=== PATIENT | male | born 1935 | race Caucasian/White ===

== ENCOUNTER 2020-11-23 08:47 | Inpatient (IN) | payer MEDICARE, MEDICAID ==
[~2020-11-23] VITALS: Ht 167.6 cm; Wt 53.7 kg
[2020-11-23] MEDS ORDERED: DILTIAZEM HCL 5MG/ML 5ML VIAL IV ONE (09:15)
[2020-11-23 09:33] LABS: CHLORIDE 113 mEq/L (98-107)
[2020-11-23 09:34] LABS: BASOPHILS % 0.5 % (0.0-2.0); HEMATOCRIT. 45.9 % (42.0-52.0); HEMOGLOBIN. 15.4 g/dL (14.0-18.0); LYMPHOCYTES % 14.1 % (20.0-50.0); MEAN CORPUSCULAR VOLUME 89.2 fL (80.0-94.0); MEAN PLATELET VOLUME 8.9 fl (7.4-10.4); MONOCYTES % 6.7 % (2.0-8.0); NEUTROPHILS % 77.7 % (40.0-76.0); PLATELET 253 x1000/uL (130-400); RED BLOOD CELL COUNT 5.14 mill/uL (4.7-6.1); RED CELL DISTRIBUTION WIDTH 15.5 % (11.6-14.6)
[2020-11-23 09:36] LABS: INR 1.1; PROTHROMBIN TIME 12.1 sec (9.6-11.0)
[2020-11-23 09:37] LABS: ETHANOL BLOOD < 10 mg/dL
[2020-11-23 09:42] LABS: T4 FREE 1.56 ng/dL (0.76-1.46)
[2020-11-23] MEDS ORDERED: DILTIAZEM HCL 30MG TABLET PO ONE (10:00)
[2020-11-23] MEDS ORDERED: FUROSEMIDE 40MG/4ML VIAL IVP ONE (10:15)
[2020-11-23 10:56] LABS: CLARITY URINE CLEAR (CLEAR); COLOR URINE YELLOW (YELLOW); KETONES URINE TRACE (NEGATIVE); LEUKOCYTE ESTERASE URINE 2+ (NEGATIVE); NITRITE URINE NEGATIVE (NEGATIVE); OCCULT BLOOD URINE NEGATIVE (NEGATIVE); PROTEIN URINE 1+ (NEGATIVE); SPECIFIC GRAVITY URINE 1.014 (1.005-1.030)
[2020-11-23 11:11] LABS: *BARBITURATES SCREEN URINE NEGATIVE (NEGATIVE)
[2020-11-23 11:12] LABS: *AMPHETAMINES SCREEN URINE NEGATIVE (NEGATIVE); *BENZODIAZEPINES SCREEN URINE NEGATIVE (NEGATIVE); *COCAINE SCREEN URINE NEGATIVE (NEGATIVE); CANNABINOID URINE SCREEN NEGATIVE (NEGATIVE); METHADONE URINE SCREEN NEGATIVE (NEGATIVE); OPIATES URINE SCREEN NEGATIVE (NEGATIVE); PHENCYCLIDINE URINE SCREEN NEGATIVE (NEGATIVE)
[2020-11-23] MEDS ORDERED: CEFTRIAXONE 1 G PREMIX 50 ML IV ONE (12:00)
[2020-11-23] MEDS ORDERED: DILTIAZEM HCL 30MG TABLET PO PRN (13:45)
[2020-11-23] MEDS ORDERED: HYDROCODONE/ACETAMINOPHEN 5/325MG TABLET PO PRN (13:45)
[2020-11-23] MEDS ORDERED: IPRATROPIUM/ALBUTEROL 0.5-3(2.5)MG/3ML NEB HHN PRN (13:45)
[2020-11-23] MEDS ORDERED: ONDANSETRON HCL 4MG/2ML INJ IV PRN (13:45)
[2020-11-23] MEDS ORDERED: DOCUSATE SODIUM 100MG CAPSULE PO PRN (13:45)
[2020-11-23] MEDS ORDERED: ACETAMINOPHEN 325MG TABLET PO PRN (13:45)
[2020-11-23] MEDS ORDERED: MAGNESIUM/ALUMINUM HYDROXIDE/SIMETHICONE 30ML UDC PO PRN (13:45)
[2020-11-23] MEDS ORDERED: CLONIDINE 0.1MG TABLET PO PRN (13:45)
[2020-11-23] MEDS ORDERED: GUAIFENESIN 200MG/10ML SUGAR FREE UDC PO PRN (13:45)
[2020-11-23] MEDS: AMLODIPINE 10MG TABLET PO SCH (14:00)
[2020-11-23] MEDS ORDERED: APIXABAN 5 MG TABLET PO SCH (14:00)
[2020-11-23] MEDS ORDERED: AZITHROMYCIN 500MG/250ML 250 ML IV SCH (14:00)
[2020-11-23] MEDS: APIXABAN 2.5 MG TABLET PO SCH (17:06)
[2020-11-24] VITALS (8 sets, daily range): BP systolic 91–144; BP diastolic 52–95
[2020-11-24 05:17] LABS: LDL CHOLESTEROL 106 mg/dL (5-100)
[2020-11-24 05:18] LABS: HDL CHOLESTEROL 43 mg/dL (40-59)
[2020-11-24 05:54] LABS: BASOPHILS % 0.6 % (0.0-2.0); EOSINOPHILS % 3.1 % (0.0-5.0); HEMATOCRIT. 47.1 % (42.0-52.0); HEMOGLOBIN. 15.7 g/dL (14.0-18.0); LYMPHOCYTES % 17.8 % (20.0-50.0); MEAN CORPUSCULAR HEMOGLOBIN 30.1 pg (28.0-32.0); MEAN CORPUSCULAR VOLUME 90.3 fL (80.0-94.0); MEAN PLATELET VOLUME 9.4 fl (7.4-10.4); NEUTROPHILS % 68.5 % (40.0-76.0); PLATELET 221 x1000/uL (130-400); RED BLOOD CELL COUNT 5.22 mill/uL (4.7-6.1); RED CELL DISTRIBUTION WIDTH 15.4 % (11.6-14.6)
[2020-11-24 05:56] LABS: CHLORIDE 110 mEq/L (98-107)
[2020-11-24] MEDS: FUROSEMIDE 40MG/4ML VIAL IV SCH (08:40)
[2020-11-24] MEDS: APIXABAN 2.5 MG TABLET PO SCH ×2 (08:40→17:08)
[2020-11-24] MEDS: AMLODIPINE 10MG TABLET PO SCH (08:41)
[2020-11-24] MEDS: METOPROLOL TARTRATE 50MG TABLET PO SCH ×2 (08:46→20:53)
[2020-11-24] MEDS ORDERED: CEFTRIAXONE 1 G PREMIX 50 ML IV SCH (09:00)
[2020-11-24] MEDS ORDERED: NALOXONE HCL 0.4MG/ML VIAL IV PRN (10:45)
[2020-11-24] MEDS: CEFTRIAXONE 1,000 MG in DEXTROSE 5% WATER 50 ML IV SCH (12:16)
[2020-11-24] MEDS: AZITHROMYCIN 500MG in DEXTROSE 5% WATER 250ML IV SCH (12:17)
[2020-11-24] MEDS ORDERED: APIX2.5T PO (14:17)
[2020-11-24] MEDS ORDERED: METO-396 PO (14:17)
[2020-11-24] MEDS ORDERED: DIGOXIN 500MCG/2ML AMP IV NR (16:18)
[2020-11-24] MEDS ORDERED: METOPROLOL TARTRATE 5MG/5ML VIAL IV PRN (16:19)
[2020-11-24] MEDS: ATORVASTATIN CALCIUM 20MG TABLET PO SCH (20:53)
[2020-11-25] VITALS: BP 144/70
[2020-11-25 03:55] VITALS: BP 114/73
[2020-11-25 08:00] VITALS: BP 116/58
[2020-11-25] MEDS: METOPROLOL TARTRATE 50MG TABLET PO SCH ×2 (09:15→21:13)
[2020-11-25] MEDS: APIXABAN 2.5 MG TABLET PO SCH ×2 (09:15→18:01)
[2020-11-25] MEDS: FUROSEMIDE 40MG/4ML VIAL IV SCH (09:15)
[2020-11-25] MEDS: AMLODIPINE 10MG TABLET PO SCH (09:15)
[2020-11-25 12:00] VITALS: BP 104/67
[2020-11-25] MEDS: CEFTRIAXONE 1,000 MG in DEXTROSE 5% WATER 50 ML IV SCH (14:19)
[2020-11-25 16:00] VITALS: BP 110/60
[2020-11-25] MEDS: AZITHROMYCIN 500MG in DEXTROSE 5% WATER 250ML IV SCH (17:41)
[2020-11-25 20:33] VITALS: BP 96/74
[2020-11-25] MEDS: ATORVASTATIN CALCIUM 20MG TABLET PO SCH (21:12)
[2020-11-26] VITALS: BP 105/72
[2020-11-26 04:00] VITALS: BP 106/64
[2020-11-26 08:00] VITALS: BP 111/64
[2020-11-26] MEDS: APIXABAN 2.5 MG TABLET PO SCH ×2 (08:54→17:25)
[2020-11-26] MEDS: METOPROLOL TARTRATE 50MG TABLET PO SCH (08:54)
[2020-11-26] MEDS: FUROSEMIDE 40MG/4ML VIAL IV SCH (08:55)
[2020-11-26] MEDS: AMLODIPINE 10MG TABLET PO SCH (08:55)
[2020-11-26] MEDS ORDERED: AZITHROMYCIN 500 MG TABLET PO SCH (11:00)
[2020-11-26 12:00] VITALS: BP 99/70
[2020-11-26] MEDS ORDERED: NITROFURANTOIN 100MG M/M CAPSULE PO SCH (12:00)
[2020-11-26 13:02] VITALS: BP 108/59
[2020-11-26 16:00] VITALS: BP 114/61
[2020-11-27] MEDS ORDERED: FUROSEMIDE 40MG TABLET PO SCH (09:00)
== END 2020-11-26 17:57 | disposition home health service (06) | DRG 871 ==
LOC: ER 08:47 → 5EST 11:04 → 6WST 11-25 04:20
PROVIDERS: ADMIT Hospitalist; ATTEND Hospitalist
DX: A41.9 Sepsis, unspecified organism (principal); J96.01 Acute respiratory failure with hypoxia; I50.23 Acute on chronic systolic (congestive) heart failure; I48.11 Longstanding persistent atrial fibrillation; D68.59 Other primary thrombophilia; E44.1 Mild protein-calorie malnutrition; N39.0 Urinary tract infection, site not specified; N17.9 Acute kidney failure, unspecified; Z68.1 Body mass index [BMI] 19.9 or less, adult; I11.0 Hypertensive heart disease with heart failure; I16.0 Hypertensive urgency; Z20.822 Contact with and (suspected) exposure to COVID-19; Z60.2 Problems related to living alone; I25.10 Atherosclerotic heart disease of native coronary artery without angina pectoris; T37.8X5A Adverse effect of other specified systemic anti-infectives and antiparasitics, initial encounter; B95.2 Enterococcus as the cause of diseases classified elsewhere; Z79.01 Long term (current) use of anticoagulants; Z59.0 Homelessness; Y92.89 Other specified places as the place of occurrence of the external cause
CPT/HCPCS: 36415; 71045; 80053; 80061; 80305; 80320; 81003; 83735; 83880; 84439; 84443; 84484; 85025; 87077; 87186; 87426; 93005; 93306; 93970; 97161; 99291; J0456; J0696; J1160; J1940; J3490; J7060; G0480

== ENCOUNTER 2020-11-30 17:58 | Inpatient (IN) | payer MEDICARE, MEDICAID ==
[~2020-11-30] VITALS: Ht 172.7 cm; Wt 60.3 kg
[~2020-11-30 17:58] MED LIST: APIX2.5T PO; METO-396 PO
[2020-11-30] MEDS ORDERED: SODIUM CHLORIDE 0.9% 1,000 ML IV ONE (18:45)
[2020-11-30 19:43] LABS: BASOPHILS % 0.9 % (0.0-2.0); EOSINOPHILS % 3.4 % (0.0-5.0); HEMATOCRIT. 41.9 % (42.0-52.0); HEMOGLOBIN. 14.2 g/dL (14.0-18.0); LYMPHOCYTES % 15.4 % (20.0-50.0); MEAN CORPUSCULAR HEMOGLOBIN 30.5 pg (28.0-32.0); MEAN CORPUSCULAR VOLUME 90.1 fL (80.0-94.0); MEAN PLATELET VOLUME 7.9 fl (7.4-10.4); MONOCYTES % 8.1 % (2.0-8.0); NEUTROPHILS % 72.2 % (40.0-76.0); PLATELET 248 x1000/uL (130-400); RED BLOOD CELL COUNT 4.65 mill/uL (4.7-6.1)
[2020-11-30 19:50] LABS: CHLORIDE 106 mEq/L (98-107)
[2020-11-30] MEDS ORDERED: DILTIAZEM HCL 5MG/ML 5ML VIAL IV ONE (20:45)
[2020-11-30 21:02] LABS: CLARITY URINE CLEAR (CLEAR); COLOR URINE YELLOW (YELLOW); KETONES URINE NEGATIVE (NEGATIVE); LEUKOCYTE ESTERASE URINE NEGATIVE (NEGATIVE); NITRITE URINE NEGATIVE (NEGATIVE); OCCULT BLOOD URINE NEGATIVE (NEGATIVE); PROTEIN URINE NEGATIVE (NEGATIVE); SPECIFIC GRAVITY URINE 1.006 (1.005-1.030); UROBILINOGEN URINE 0.2 E.U./dL (0.2-1.0)
[2020-11-30] MEDS ORDERED: KETOROLAC 15MG/ML VIAL IV ONE (22:00)
[2020-11-30] MEDS ORDERED: ZOLPIDEM TARTRATE 5MG TABLET PO PRN (22:45)
[2020-11-30] MEDS ORDERED: KETOROLAC 15MG/ML VIAL IV PRN (22:45)
[2020-11-30] MEDS ORDERED: DOCUSATE SODIUM 100MG CAPSULE PO PRN (22:45)
[2020-11-30] MEDS ORDERED: ACETAMINOPHEN 325MG TABLET PO PRN ×2 (22:45)
[2020-11-30] MEDS ORDERED: IPRATROPIUM/ALBUTEROL 0.5-3(2.5)MG/3ML NEB NEB PRN (22:45)
[2020-11-30] MEDS ORDERED: MAGNESIUM/ALUMINUM HYDROXIDE/SIMETHICONE 30ML UDC PO PRN (22:45)
[2020-11-30] MEDS ORDERED: ONDANSETRON HCL 4MG/2ML INJ IV PRN (22:45)
[2020-11-30] MEDS ORDERED: TRAMADOL 50MG TABLET PO PRN (22:45)
[2020-11-30] MEDS ORDERED: GUAIFENESIN 200MG/10ML SUGAR FREE UDC PO PRN (22:45)
[2020-11-30] MEDS ORDERED: CLONIDINE 0.1MG TABLET PO PRN (22:45)
[2020-11-30] MEDS ORDERED: ENOXAPARIN 80MG/0.8ML SYR SUBCUT SCH (23:00)
[2020-11-30] MEDS: DEXT 5%/LACTATED RINGERS 1,000 ML IV SCH (23:26)
[2020-12-01 06:05] LABS: CREATINE KINASE 57 IU/L (39-308)
[2020-12-01 06:06] LABS: CREATINE KINASE MB FRACTION < 1.0 ng/mL (0.5-3.6)
[2020-12-01 09:00] VITALS: BP 90/64
[2020-12-01 09:58] VITALS: BP 90/64
[2020-12-01 12:00] VITALS: BP 110/87
[2020-12-01] MEDS ORDERED: INFLUENZA VACCINE 05/PF 0.5 ML SYRINGE IM ONE (12:00)
[2020-12-01] MEDS: PANTOPRAZOLE SODIUM 40 MG/VIAL IV SCH (12:06)
[2020-12-01] MEDS: ENOXAPARIN 80MG/0.8ML SYR SUBCUT SCH ×3 (12:07→22:05)
[2020-12-01] MEDS: DEXT 5%/LACTATED RINGERS 1,000 ML IV SCH (13:54)
[2020-12-01] MEDS ORDERED: PNEUMOCOCCAL 23-VAL P-SAC VAC 0.5 ML IM ONE (15:00)
[2020-12-01 16:00] VITALS: BP 98/82
[2020-12-01 16:25] LABS: CREATINE KINASE MB FRACTION 1.7 ng/mL (0.5-3.6)
[2020-12-01 16:28] LABS: CREATINE KINASE 85 IU/L (39-308)
[2020-12-01 20:00] VITALS: BP 95/65
[2020-12-01] MEDS ORDERED: METO25TA6 MT (22:48)
[2020-12-01] MEDS ORDERED: FURO-151 PO (22:48)
[2020-12-01] MEDS ORDERED: NITR100C PO (22:48)
[2020-12-01] MEDS ORDERED: ATOR20TA MT (22:48)
[2020-12-02] VITALS: BP 108/80
[2020-12-02] MEDS: DEXT 5%/LACTATED RINGERS 1,000 ML IV SCH (01:25)
[2020-12-02 03:40] LABS: *AMPHETAMINES SCREEN URINE NEGATIVE (NEGATIVE)
[2020-12-02 03:42] LABS: *BARBITURATES SCREEN URINE NEGATIVE (NEGATIVE); *BENZODIAZEPINES SCREEN URINE NEGATIVE (NEGATIVE); *COCAINE SCREEN URINE NEGATIVE (NEGATIVE); CANNABINOID URINE SCREEN NEGATIVE (NEGATIVE); METHADONE URINE SCREEN NEGATIVE (NEGATIVE); OPIATES URINE SCREEN NEGATIVE (NEGATIVE); PHENCYCLIDINE URINE SCREEN NEGATIVE (NEGATIVE)
[2020-12-02 04:00] VITALS: BP 104/69
[2020-12-02 07:38] LABS: BASOPHILS % 0.7 % (0.0-2.0); EOSINOPHILS % 2.8 % (0.0-5.0); HEMATOCRIT. 42.6 % (42.0-52.0); HEMOGLOBIN. 14.4 g/dL (14.0-18.0); LYMPHOCYTES % 10.3 % (20.0-50.0); MEAN CORPUSCULAR VOLUME 88.9 fL (80.0-94.0); MEAN PLATELET VOLUME 8.3 fl (7.4-10.4); MONOCYTES % 6.6 % (2.0-8.0); NEUTROPHILS % 79.6 % (40.0-76.0); PLATELET 244 x1000/uL (130-400)
[2020-12-02 07:44] LABS: INR 1.1; PROTHROMBIN TIME 11.4 sec (9.6-11.0)
[2020-12-02 08:00] VITALS: BP 128/67
[2020-12-02] MEDS: PANTOPRAZOLE SODIUM 40 MG/VIAL IV SCH (09:00)
[2020-12-02] MEDS: ENOXAPARIN 80MG/0.8ML SYR SUBCUT SCH ×2 (09:00→20:20)
[2020-12-02 10:09] LABS: INR 1.1; PROTHROMBIN TIME 11.9 sec (9.6-11.0)
[2020-12-02] MEDS ORDERED: FENTANYL CITRATE/PF 50MCG/ML 2ML VIAL ONE (10:46)
[2020-12-02] MEDS ORDERED: PROPOFOL 200MG/20ML VIAL IV ONE (10:47)
[2020-12-02] MEDS ORDERED: MIDAZOLAM HCL 2 MG/2 ML VIAL ONE (10:47)
[2020-12-02] MEDS ORDERED: DEXAMETHASONE 4MG/ML 1ML VIAL ONE (11:28)
[2020-12-02] MEDS ORDERED: ONDANSETRON HCL 4MG/2ML INJ ONE (11:28)
[2020-12-02] MEDS ORDERED: PHENYLEPHRINE HCL 10 MG/ML 1ML (IV VIAL) IV ONE (11:46)
[2020-12-02] MEDS ORDERED: ONDANSETRON HCL 4MG/2ML INJ IV PRN (12:30)
[2020-12-02] MEDS ORDERED: HYDROMORPHONE HCL/PF 2MG/ML CPJ IV PRN (12:30)
[2020-12-02] MEDS ORDERED: LABETALOL 5MG/ML SYR 20 MG/4 ML SYRINGE IV PRN (12:30)
[2020-12-02] MEDS ORDERED: MEPERIDINE HCL/PF 25MG/ML CPJ IV PRN (12:30)
[2020-12-02 16:00] VITALS: BP 101/73
[2020-12-02] MEDS: DEXT 5%/0.9% NACL 1,000 ML IV SCH ×2 (17:57→20:51)
[2020-12-02 20:00] VITALS: BP 98/59
[2020-12-02 20:10] VITALS: BP 112/65
[2020-12-02] MEDS: DILTIAZEM HCL 30MG TABLET PO SCH (20:20)
[2020-12-03] VITALS (8 sets, daily range): BP systolic 91–104; BP diastolic 49–78
[2020-12-03] MEDS: DILTIAZEM HCL 30MG TABLET PO SCH ×5 (06:00→23:57)
[2020-12-03] MEDS: PANTOPRAZOLE SODIUM 40 MG/VIAL IV SCH (09:06)
[2020-12-03] MEDS: ENOXAPARIN 80MG/0.8ML SYR SUBCUT SCH (09:07)
[2020-12-03] MEDS: DEXT 5%/0.9% NACL 1,000 ML IV SCH ×2 (11:55→18:38)
[2020-12-03] MEDS ORDERED: ENOXAPARIN 60MG/0.6ML SYR SUBCUT SCH (21:00)
[2020-12-04] MEDS: DEXT 5%/0.9% NACL 1,000 ML IV SCH (00:56)
[2020-12-04 04:00] VITALS: BP 110/79
[2020-12-04] MEDS: DILTIAZEM HCL 30MG TABLET PO SCH ×2 (06:05→13:42)
[2020-12-04 08:00] VITALS: BP 119/79
[2020-12-04] MEDS ORDERED: FAMOTIDINE 20MG/2ML VIAL IV SCH (09:00)
[2020-12-04] MEDS ORDERED: APIXABAN 2.5 MG TABLET PO SCH (10:30)
[2020-12-04 12:00] VITALS: BP 119/68
[2020-12-04 15:04] VITALS: BP 119/68
== END 2020-12-04 18:05 | DRG 694 ==
LOC: ER 17:58 → MICUSO 22:21 → SUPCPDRO 22:34 → 6WST 12-01 07:57
PROVIDERS: ADMIT Internal Medicine; ATTEND Internal Medicine
PROC: 0TF6XZZ Fragmentation in Right Ureter, External Approach (ICD-10-PCS; principal; 2020-12-02)
DX: N13.2 Hydronephrosis with renal and ureteral calculous obstruction (principal); E44.1 Mild protein-calorie malnutrition; I50.40 Unspecified combined systolic (congestive) and diastolic (congestive) heart failure; Z20.822 Contact with and (suspected) exposure to COVID-19; I11.0 Hypertensive heart disease with heart failure; I48.91 Unspecified atrial fibrillation; Z79.2 Long term (current) use of antibiotics; Z79.899 Other long term (current) drug therapy; Z68.20 Body mass index [BMI] 20.0-20.9, adult; Z59.00 Homelessness unspecified
CPT/HCPCS: 36415; 71045; 74176; 76770; 80048; 80053; 80305; 81003; 82360; 82550; 82553; 84484; 85025; 87426; 90686; 90732; 93005; 93970; 97161; 97166; 99285; C9113; J1100; J1650; J2250; J2370; J2405; J2704; J3010; J3490; J7030; J7042

== ENCOUNTER 2021-02-23 03:32 | Inpatient (IN) | payer MEDICARE, MEDICAID ==
[~2021-02-23] VITALS: Ht 177.8 cm; Wt 64.9 kg
[~2021-02-23 03:32] MED LIST changes: +ATOR20TA MT; +FURO-151 PO; +METO25TA6 MT; +NITR100C PO
[2021-02-23] MEDS ORDERED: PIPERACILLIN/TAZ 3.375G PREMIX 50 ML IV ONE (03:45)
[2021-02-23] MEDS ORDERED: DILTIAZEM HCL 5MG/ML 5ML VIAL IV ONE (03:45)
[2021-02-23] MEDS ORDERED: VANCOMYCIN 1 G PREMIX 200 ML IV ONE (03:45)
[2021-02-23 04:03] LABS: HEMATOCRIT. 51.8 % (42.0-52.0); HEMOGLOBIN. 15.6 g/dL (14.0-18.0); MEAN CORPUSCULAR HEMOGLOBIN 29.1 pg (28.0-32.0); MEAN CORPUSCULAR VOLUME 96.6 fL (80.0-94.0); MEAN PLATELET VOLUME 11.2 fl (7.4-10.4); PLATELET 57 x1000/uL (130-400); RED BLOOD CELL COUNT 5.37 mill/uL (4.7-6.1)
[2021-02-23 04:10] LABS: CHLORIDE 144 mEq/L (98-107)
[2021-02-23 04:29] LABS: BG CARBOXYHEMOGLOBIN 0.3 % (0.5-1.5); BG DEOXYHEMOGLOBIN 0.5 % (0.0-5.0); BG FRACTION INSPIRED OXYGEN 100; BG HCO3 ACT 8.7 mmol/L (22.0-26.0); BG METHEMOGLOBIN 0.3 % (0.0-1.5); BG OXYGEN SATURATION 99.5 % (92.0-98.5); BG OXYHEMOGLOBIN 98.9 % (94.0-97.0); BG PH 7.256 (7.350-7.450); BG PO2 554.9 mmHg (75.0-100.0); BG SAMPLE SITE RIGHT RADIAL; BG TOTAL HEMOGLOBIN 15.5 g/dL (12.0-18.0); BG VENT MODE MASK - BIPAP
[2021-02-23] MEDS ORDERED: INSULIN REGULAR (DRIP) 100 UNITS in SODIUM CHLORIDE 0.9% 99 ML IV NR (04:45)
[2021-02-23] MEDS ORDERED: DEXTROSE 5% WATER 1,000 ML IV ONE ×2 (04:45→07:00)
[2021-02-23] MEDS ORDERED: DILTIAZEM HCL 125 MG in DEXT 5% WATER 100 ML IV ONE (05:15)
[2021-02-23 06:52] LABS: NUCLEATED RED BLOOD CELLS 1 /100 WBC; PLATELET ESTIMATE DECREASED
[2021-02-23] MEDS ORDERED: ACETAMINOPHEN 325MG TABLET PO PRN ×2 (07:00)
[2021-02-23] MEDS ORDERED: MAGNESIUM/ALUMINUM HYDROXIDE/SIMETHICONE 30ML UDC PO PRN (07:00)
[2021-02-23] MEDS ORDERED: TRAMADOL 50MG TABLET PO PRN (07:00)
[2021-02-23] MEDS ORDERED: PIPERACILLIN/TAZ 3.375G PREMIX 50 ML IV NR (07:00)
[2021-02-23] MEDS ORDERED: GUAIFENESIN 200MG/10ML SUGAR FREE UDC PO PRN (07:00)
[2021-02-23] MEDS ORDERED: DOCUSATE SODIUM 100MG CAPSULE PO PRN (07:00)
[2021-02-23] MEDS ORDERED: CLONIDINE 0.1MG TABLET PO PRN (07:00)
[2021-02-23] MEDS ORDERED: IPRATROPIUM/ALBUTEROL 0.5-3(2.5)MG/3ML NEB NEB PRN (07:00)
[2021-02-23] MEDS ORDERED: NITROGLYCERIN 0.4MG TABLET SL SL PRN (07:00)
[2021-02-23] MEDS ORDERED: SODIUM CHLORIDE 0.45% 1,000 ML IV NR (07:00)
[2021-02-23] MEDS ORDERED: NALOXONE HCL 0.4MG/ML VIAL IV PRN (07:30)
[2021-02-23 07:40] LABS: VITAMIN B12 SERUM >2000 pg/mL pg/mL (211-911)
[2021-02-23] MEDS: ASPIRIN 81MG EC TABLET PO SCH (09:00)
[2021-02-23] MEDS: FAMOTIDINE 20MG TABLET PO SCH (09:00)
[2021-02-23] MEDS: ASCORBIC ACID 500 MG TABLET PO SCH ×2 (09:00→21:00)
[2021-02-23] MEDS: CHOLECALCIFEROL (D3) 1000 UNIT TABLET PO SCH (09:00)
[2021-02-23] MEDS: ZINC SULFATE 220 MG ( 50 ) CAPSULE PO SCH (09:00)
[2021-02-23 09:15] LABS: CLARITY URINE CLOUDY (CLEAR); COLOR URINE DARK YELLOW (YELLOW); KETONES URINE TRACE (NEGATIVE); LEUKOCYTE ESTERASE URINE 1+ (NEGATIVE); NITRITE URINE NEGATIVE (NEGATIVE); OCCULT BLOOD URINE 2+ (NEGATIVE); PROTEIN URINE 1+ (NEGATIVE); SPECIFIC GRAVITY URINE 1.021 (1.005-1.030)
[2021-02-23] MEDS: DILTIAZEM HCL 60MG TABLET PO SCH ×3 (12:00→23:40)
[2021-02-23] MEDS ORDERED: IPRATROPIUM BROMIDE (0.02%) 0.5MG/2.5ML NEB HHN PRN (12:45)
[2021-02-23 13:06] LABS: BG BASE EXCESS -9.4 mmol/L (-2.0-2.0); BG CARBOXYHEMOGLOBIN 0.3 % (0.5-1.5); BG DEOXYHEMOGLOBIN 1.1 % (0.0-5.0); BG HCO3 ACT 12.5 mmol/L (22.0-26.0); BG METHEMOGLOBIN 0.3 % (0.0-1.5); BG OXYGEN SATURATION 98.9 % (92.0-98.5); BG OXYHEMOGLOBIN 98.3 % (94.0-97.0); BG PCO2 19.5 mmHg (35.0-45.0); BG PH 7.424 (7.350-7.450); BG PO2 152.2 mmHg (75.0-100.0); BG SAMPLE SITE RIGHT BRACHIAL; BG VENT MODE NASAL CANNULA
[2021-02-23 14:00] VITALS: BP 130/64
[2021-02-23 14:35] LABS: CREATINE KINASE MB FRACTION 8.6 ng/mL (0.5-3.6)
[2021-02-23 15:07] LABS: BG CARBOXYHEMOGLOBIN 0.1 % (0.5-1.5); BG DEOXYHEMOGLOBIN 1.3 % (0.0-5.0); BG HCO3 ACT 12.7 mmol/L (22.0-26.0); BG METHEMOGLOBIN 0.4 % (0.0-1.5); BG OXYGEN SATURATION 98.7 % (92.0-98.5); BG OXYHEMOGLOBIN 98.2 % (94.0-97.0); BG PCO2 17.5 mmHg (35.0-45.0); BG PH 7.477 (7.350-7.450); BG PO2 146.2 mmHg (75.0-100.0); BG SAMPLE SITE RIGHT BRACHIAL; BG TOTAL HEMOGLOBIN 14.4 g/dL (12.0-18.0); BG VENT MODE NASAL CANNULA
[2021-02-23] MEDS: DEXT 5%/0.2% NACL 1,000 ML IV SCH ×2 (15:52→23:39)
[2021-02-23 15:59] VITALS: BP 130/64
[2021-02-23 16:00] VITALS: BP 124/73
[2021-02-23] MEDS: IPRATROPIUM BROMIDE (0.02%) 0.5MG/2.5ML NEB HHN SCH ×2 (16:20→20:24)
[2021-02-23 18:00] VITALS: BP 98/72
[2021-02-23] MEDS ORDERED: APIXABAN 2.5 MG TABLET PO SCH (18:00)
[2021-02-23] MEDS ORDERED: HALOPERIDOL LACTATE 5MG/ML VIAL IM NR (19:15)
[2021-02-23 20:00] VITALS: BP 121/70
[2021-02-23] MEDS ORDERED: PIPERACILLIN/TAZOBACTAM 3.375 G in DEXTROSE 5% WATER 50 ML IV SCH (21:00)
[2021-02-23] MEDS ORDERED: ZOLPIDEM TARTRATE 5MG TABLET PO PRN (21:00)
[2021-02-23 21:31] LABS: PHOSPHORUS 3.6 mg/dL (2.5-4.9)
[2021-02-23 21:56] LABS: HEPATITIS B SURFACE ANTIGEN NEGATIVE
[2021-02-23 22:00] VITALS: BP 121/55
[2021-02-23] MEDS: PIPERACILLIN/TAZOBACTAM 3.375 G in DEXTROSE 5% WATER 50 ML IV SCH (23:37)
[2021-02-24] VITALS (17 sets, daily range): BP systolic 95–133; BP diastolic 46–81
[2021-02-24 00:10] LABS: CREATINE KINASE MB FRACTION 9.7 ng/mL (0.5-3.6)
[2021-02-24] MEDS ORDERED: DILTIAZEM HCL 125 MG in DEXT 5% WATER 100 ML IV NR (00:15)
[2021-02-24] MEDS: IPRATROPIUM BROMIDE (0.02%) 0.5MG/2.5ML NEB HHN SCH ×4 (01:03→21:22)
[2021-02-24] MEDS: DILTIAZEM HCL 60MG TABLET PO SCH ×4 (06:00→23:50)
[2021-02-24 06:20] LABS: HEMATOCRIT. 48.6 % (42.0-52.0); MEAN CORPUSCULAR HEMOGLOBIN 29.8 pg (28.0-32.0); MEAN PLATELET VOLUME 10.9 fl (7.4-10.4); RED BLOOD CELL COUNT 4.71 mill/uL (4.7-6.1); RED CELL DISTRIBUTION WIDTH 18.6 % (11.6-14.6)
[2021-02-24 06:25] LABS: CHLORIDE 138 mEq/L (98-107)
[2021-02-24 06:32] LABS: PHOSPHORUS 3.1 mg/dL (2.5-4.9)
[2021-02-24 06:51] LABS: PLATELET 35 x1000/uL (130-400)
[2021-02-24] MEDS: PIPERACILLIN/TAZOBACTAM 3.375 G in DEXTROSE 5% WATER 50 ML IV SCH (08:39)
[2021-02-24] MEDS ORDERED: ENOXAPARIN 30MG/0.3ML SYR SUBCUT SCH (09:00)
[2021-02-24 10:27] LABS: NUCLEATED RED BLOOD CELLS 2 /100 WBC
[2021-02-24 10:28] LABS: PLATELET ESTIMATE MARKEDLY DECREASED
[2021-02-24] MEDS ORDERED: CEFAZOLIN SODIUM 1000MG/VIAL IV ONE (10:45)
[2021-02-24] MEDS: ZINC SULFATE 220 MG ( 50 ) CAPSULE PO SCH (10:57)
[2021-02-24] MEDS: ASPIRIN 81MG EC TABLET PO SCH (10:57)
[2021-02-24] MEDS: FAMOTIDINE 20MG TABLET PO SCH (10:57)
[2021-02-24] MEDS: ASCORBIC ACID 500 MG TABLET PO SCH ×2 (10:57→21:59)
[2021-02-24] MEDS ORDERED: CEFAZOLIN 1000MG PREMIX 50 ML IV SCH (11:00)
[2021-02-24] MEDS: CHOLECALCIFEROL (D3) 1000 UNIT TABLET PO SCH (11:02)
[2021-02-24 11:32] LABS: PROTHROMBIN TIME 20.4 sec (9.6-11.0)
[2021-02-24] MEDS ORDERED: VANCOMYCIN 1 G PREMIX 200 ML IV NR (12:00)
[2021-02-24] MEDS: PHYTONADIONE 10MG/ML AMP SUBCUT SCH (13:36)
[2021-02-24] MEDS: DEXT 5%/0.2% NACL 1,000 ML IV SCH ×2 (15:51→23:49)
[2021-02-24 20:44] LABS: INR 1.9; PROTHROMBIN TIME 19.4 sec (9.6-11.0)
[2021-02-24] MEDS: CEFEPIME 1,000 MG in DEXTROSE 5% WATER 50 ML IV SCH (21:59)
[2021-02-25] VITALS (13 sets, daily range): BP systolic 112–130; BP diastolic 54–79
[2021-02-25] MEDS: IPRATROPIUM BROMIDE (0.02%) 0.5MG/2.5ML NEB HHN SCH ×4 (02:41→20:18)
[2021-02-25] MEDS: DILTIAZEM HCL 60MG TABLET PO SCH ×2 (05:53→12:00)
[2021-02-25 06:11] LABS: *CREATININE RANDOM URINE 77.2 mg/dL (Not Estab.); MICROALBUMIN RANDOM URINE 79.8 ug/mL (Not Estab.)
[2021-02-25 06:38] LABS: MEAN CORPUSCULAR HEMOGLOBIN 30.1 pg (28.0-32.0); MEAN CORPUSCULAR VOLUME 92.4 fL (80.0-94.0); MEAN PLATELET VOLUME 11.4 fl (7.4-10.4); RED BLOOD CELL COUNT 4.33 mill/uL (4.7-6.1); RED CELL DISTRIBUTION WIDTH 17.2 % (11.6-14.6)
[2021-02-25] MEDS: DEXT 5%/0.2% NACL 1,000 ML IV SCH ×4 (06:45→20:26)
[2021-02-25 07:01] LABS: CHLORIDE 130 mEq/L (98-107)
[2021-02-25 07:20] LABS: PHOSPHORUS 2.6 mg/dL (2.5-4.9)
[2021-02-25] MEDS: PHYTONADIONE 10MG/ML AMP SUBCUT SCH (08:35)
[2021-02-25] MEDS: ZINC SULFATE 220 MG ( 50 ) CAPSULE PO SCH (09:00)
[2021-02-25] MEDS: ASCORBIC ACID 500 MG TABLET PO SCH ×2 (09:00→20:26)
[2021-02-25] MEDS: FAMOTIDINE 20MG TABLET PO SCH (09:00)
[2021-02-25] MEDS: CHOLECALCIFEROL (D3) 1000 UNIT TABLET PO SCH (09:00)
[2021-02-25] MEDS: ASPIRIN 81MG EC TABLET PO SCH (09:00)
[2021-02-25 09:07] LABS: A/G RATIO 0.9 (0.7-1.7); ALBUMIN 2.5 g/dL (2.9-4.4); ALPHA-1-GLOBULIN 0.2 g/dL (0.0-0.4); ALPHA-2-GLOBULIN 0.4 g/dL (0.4-1.0); GAMMA GLOBULINS 1.3 g/dL (0.4-1.8); GLOBULIN TOTAL 2.9 g/dL (2.2-3.9); M-SPIKE Not Observed g/dL (Not Observed); TOTAL PROTEIN SERUM 5.4 g/dL (6.0-8.5)
[2021-02-25] MEDS ORDERED: VANCOMYCIN 1 G PREMIX 200 ML IV SCH (14:00)
[2021-02-25] MEDS ORDERED: DILTIAZEM HCL 5MG/ML 5ML VIAL IV NR (14:15)
[2021-02-25 18:33] LABS: PLATELET ESTIMATE MARKEDLY DECREASED
[2021-02-25 18:34] LABS: PLATELET 28 x1000/uL (130-400)
[2021-02-25] MEDS ORDERED: DILTIAZEM HCL 125 MG in DEXT 5% WATER 100 ML IV SCH (19:30)
[2021-02-25] MEDS: ONDANSETRON HCL 4MG/2ML INJ IV PRN (20:06)
[2021-02-25] MEDS: CEFEPIME 1,000 MG in DEXTROSE 5% WATER 50 ML IV SCH (20:26)
[2021-02-26] VITALS (17 sets, daily range): BP systolic 83–154; BP diastolic 45–96
[2021-02-26] MEDS: ONDANSETRON HCL 4MG/2ML INJ IV PRN ×2 (01:26→06:36)
[2021-02-26] MEDS: IPRATROPIUM BROMIDE (0.02%) 0.5MG/2.5ML NEB HHN SCH ×4 (02:01→20:36)
[2021-02-26] MEDS: DEXT 5%/0.2% NACL 1,000 ML IV SCH ×3 (04:55→22:34)
[2021-02-26 05:54] LABS: CHLORIDE 124 mEq/L (98-107)
[2021-02-26 06:02] LABS: PHOSPHORUS 2.7 mg/dL (2.5-4.9)
[2021-02-26 06:17] LABS: INR 1.3; PROTHROMBIN TIME 14.1 sec (9.6-11.0)
[2021-02-26 06:57] LABS: HEMATOCRIT. 42.1 % (42.0-52.0); HEMOGLOBIN. 13.4 g/dL (14.0-18.0); MEAN CORPUSCULAR HEMOGLOBIN 29.1 pg (28.0-32.0); MEAN CORPUSCULAR VOLUME 91.3 fL (80.0-94.0); RED BLOOD CELL COUNT 4.61 mill/uL (4.7-6.1); RED CELL DISTRIBUTION WIDTH 17.1 % (11.6-14.6)
[2021-02-26 07:19] LABS: MEAN PLATELET VOLUME 11.5 fl (7.4-10.4); PLATELET 29 x1000/uL (130-400)
[2021-02-26] MEDS: ZINC SULFATE 220 MG ( 50 ) CAPSULE PO SCH (08:33)
[2021-02-26] MEDS: FAMOTIDINE 20MG TABLET PO SCH (08:34)
[2021-02-26] MEDS: ASCORBIC ACID 500 MG TABLET PO SCH ×2 (08:34→22:35)
[2021-02-26] MEDS: ASPIRIN 81MG EC TABLET PO SCH (08:34)
[2021-02-26] MEDS: CHOLECALCIFEROL (D3) 1000 UNIT TABLET PO SCH (08:34)
[2021-02-26] MEDS: PHYTONADIONE 10MG/ML AMP SUBCUT SCH (09:29)
[2021-02-26] MEDS ORDERED: DILTIAZEM HCL 5MG/ML 5ML VIAL IV PRN (10:45)
[2021-02-26] MEDS: VANCOMYCIN 1 G PREMIX 200 ML IV SCH (11:00)
[2021-02-26 14:02] LABS: PLATELET ESTIMATE MARKEDLY DECREASED
[2021-02-26] MEDS: CEFEPIME 1,000 MG in DEXTROSE 5% WATER 50 ML IV SCH (22:39)
[2021-02-27] VITALS (18 sets, daily range): BP systolic 95–189; BP diastolic 49–140
[2021-02-27] MEDS: IPRATROPIUM BROMIDE (0.02%) 0.5MG/2.5ML NEB HHN SCH ×3 (01:59→14:00)
[2021-02-27] MEDS: VANCOMYCIN 1 G PREMIX 200 ML IV SCH (08:49)
[2021-02-27] MEDS: ASPIRIN 81MG EC TABLET PO SCH ×2 (08:49→09:00)
[2021-02-27] MEDS: ZINC SULFATE 220 MG ( 50 ) CAPSULE PO SCH ×2 (08:49→09:00)
[2021-02-27] MEDS: ASCORBIC ACID 500 MG TABLET PO SCH ×2 (08:49→09:00)
[2021-02-27] MEDS: DEXT 5%/0.2% NACL 1,000 ML IV SCH ×2 (08:49→22:10)
[2021-02-27] MEDS: FAMOTIDINE 20MG TABLET PO SCH ×2 (08:49→09:00)
[2021-02-27] MEDS: CHOLECALCIFEROL (D3) 1000 UNIT TABLET PO SCH ×2 (08:49→09:00)
[2021-02-27] MEDS ORDERED: NITROGLYCERIN 0.4MG/HR PATCH TOP SCH (10:00)
[2021-02-27 10:03] LABS: HEMATOCRIT. 40.9 % (42.0-52.0); HEMOGLOBIN. 13.2 g/dL (14.0-18.0); MEAN CORPUSCULAR HEMOGLOBIN 29.5 pg (28.0-32.0); MEAN CORPUSCULAR VOLUME 91.7 fL (80.0-94.0); MEAN PLATELET VOLUME 10.2 fl (7.4-10.4); PLATELET 59 x1000/uL (130-400); RED BLOOD CELL COUNT 4.46 mill/uL (4.7-6.1); RED CELL DISTRIBUTION WIDTH 16.4 % (11.6-14.6)
[2021-02-27 10:25] LABS: INR 1.4; PROTHROMBIN TIME 14.2 sec (9.6-11.0)
[2021-02-27] MEDS: NITROGLYCERIN OINT 1GM/INCH UDPKT TD SCH ×3 (10:28→21:58)
[2021-02-27] MEDS ORDERED: LIDOCAINE HCL 1% 20ML VIAL (Pyxis) INJ ONE (11:18)
[2021-02-27] MEDS: CEFEPIME 1,000 MG in DEXTROSE 5% WATER 50 ML IV SCH (21:58)
[2021-02-28] VITALS (12 sets, daily range): BP systolic 112–160; BP diastolic 50–104
[2021-02-28] MEDS: NITROGLYCERIN OINT 1GM/INCH UDPKT TD SCH ×3 (05:52→21:03)
[2021-02-28] MEDS: IPRATROPIUM BROMIDE (0.02%) 0.5MG/2.5ML NEB HHN SCH ×3 (07:32→21:10)
[2021-02-28 07:43] LABS: PLATELET ESTIMATE DECREASED
[2021-02-28 08:47] LABS: BG BASE EXCESS -10.3 mmol/L (-2.0-2.0); BG CARBOXYHEMOGLOBIN 0.2 % (0.5-1.5); BG DEOXYHEMOGLOBIN 0.7 % (0.0-5.0); BG HCO3 ACT 13.9 mmol/L (22.0-26.0); BG METHEMOGLOBIN 0.3 % (0.0-1.5); BG OXYGEN SATURATION 99.3 % (92.0-98.5); BG OXYHEMOGLOBIN 98.8 % (94.0-97.0); BG PCO2 26.7 mmHg (35.0-45.0); BG PH 7.333 (7.350-7.450); BG PO2 203.3 mmHg (75.0-100.0); BG SAMPLE SITE LEFT BRACHIAL; BG TOTAL HEMOGLOBIN 14.3 g/dL (12.0-18.0); BG VENT MODE MASK - SIMPLE
[2021-02-28] MEDS: FAMOTIDINE 20MG TABLET PO SCH ×2 (09:00→09:31)
[2021-02-28] MEDS: SODIUM BICARBONATE 50 MEQ in DEXTROSE 5% WATER 1,000 ML IV SCH (12:52)
[2021-02-28] MEDS: CLONIDINE HCL 0.1MG/24HR PATCH TD SCH (18:55)
[2021-02-28] MEDS: CEFEPIME 1,000 MG in DEXTROSE 5% WATER 50 ML IV SCH (20:08)
[2021-03-01] VITALS (14 sets, daily range): BP systolic 120–136; BP diastolic 58–85
[2021-03-01] MEDS: SODIUM BICARBONATE 50 MEQ in DEXTROSE 5% WATER 1,000 ML IV SCH ×2 (00:12→13:49)
[2021-03-01] MEDS: IPRATROPIUM BROMIDE (0.02%) 0.5MG/2.5ML NEB HHN SCH ×4 (02:39→20:51)
[2021-03-01] MEDS: NITROGLYCERIN OINT 1GM/INCH UDPKT TD SCH ×3 (05:13→22:07)
[2021-03-01 06:07] LABS: INR 1.4; PARTIAL THROMBOPLASTIN TIME 42.6 sec (23.4-31.0); PROTHROMBIN TIME 14.3 sec (9.6-11.0)
[2021-03-01 07:54] LABS: HEMATOCRIT. 38.3 % (42.0-52.0); HEMOGLOBIN. 12.9 g/dL (14.0-18.0); MEAN CORPUSCULAR HEMOGLOBIN 30.1 pg (28.0-32.0); MEAN CORPUSCULAR VOLUME 89.4 fL (80.0-94.0); MEAN PLATELET VOLUME 11.2 fl (7.4-10.4); RED BLOOD CELL COUNT 4.29 mill/uL (4.7-6.1); RED CELL DISTRIBUTION WIDTH 16.3 % (11.6-14.6)
[2021-03-01] MEDS ORDERED: CEFAZOLIN 1000MG PREMIX 50 ML IV NR (08:00)
[2021-03-01 08:11] LABS: PLATELET 49 x1000/uL (130-400)
[2021-03-01] MEDS: FAMOTIDINE 20MG TABLET PO SCH (09:40)
[2021-03-01] MEDS: METOPROLOL TARTRATE 5MG/5ML VIAL IV PRN ×2 (12:10→20:27)
[2021-03-01 13:05] LABS: PLATELET ESTIMATE MARKEDLY DECREASED
[2021-03-01] MEDS: CITRIC ACID/SODIUM CITRATE SOLN 30ML UDC PO SCH (17:15)
[2021-03-01] MEDS: DEXT 5% WATER + KCL 20MEQ/L 1,000 ML IV SCH (20:24)
[2021-03-01] MEDS: METOPROLOL TARTRATE 50MG TABLET PO SCH (20:24)
[2021-03-01] MEDS: CEFEPIME 1,000 MG in DEXTROSE 5% WATER 50 ML IV SCH (20:24)
[2021-03-02] VITALS (21 sets, daily range): BP systolic 103–145; BP diastolic 49–85
[2021-03-02] MEDS: IPRATROPIUM BROMIDE (0.02%) 0.5MG/2.5ML NEB HHN SCH ×4 (00:46→20:37)
[2021-03-02] MEDS: METOPROLOL TARTRATE 5MG/5ML VIAL IV PRN ×2 (05:09→21:41)
[2021-03-02] MEDS: NITROGLYCERIN OINT 1GM/INCH UDPKT TD SCH ×3 (05:10→21:41)
[2021-03-02 06:57] LABS: BG BASE EXCESS -6.1 mmol/L (-2.0-2.0); BG CARBOXYHEMOGLOBIN 0.3 % (0.5-1.5); BG DEOXYHEMOGLOBIN 2.8 % (0.0-5.0); BG HCO3 ACT 15.5 mmol/L (22.0-26.0); BG METHEMOGLOBIN 0.3 % (0.0-1.5); BG OXYGEN SATURATION 97.2 % (92.0-98.5); BG OXYHEMOGLOBIN 96.6 % (94.0-97.0); BG PH 7.466 (7.350-7.450); BG PO2 95.5 mmHg (75.0-100.0); BG SAMPLE SITE RIGHT RADIAL; BG TOTAL HEMOGLOBIN 13.5 g/dL (12.0-18.0); BG VENT MODE NASAL CANNULA
[2021-03-02 08:26] LABS: BASOPHILS % 0.3 % (0.0-2.0); HEMATOCRIT. 37.3 % (42.0-52.0); HEMOGLOBIN. 12.4 g/dL (14.0-18.0); LYMPHOCYTES % 8.3 % (20.0-50.0); MEAN CORPUSCULAR HEMOGLOBIN 29.4 pg (28.0-32.0); MEAN CORPUSCULAR VOLUME 88.7 fL (80.0-94.0); MEAN PLATELET VOLUME 9.9 fl (7.4-10.4); MONOCYTES % 5.8 % (2.0-8.0); NEUTROPHILS % 84.6 % (40.0-76.0); PLATELET 66 x1000/uL (130-400); RED BLOOD CELL COUNT 4.21 mill/uL (4.7-6.1); RED CELL DISTRIBUTION WIDTH 16.6 % (11.6-14.6)
[2021-03-02 08:44] LABS: PHOSPHORUS 2.6 mg/dL (2.5-4.9)
[2021-03-02] MEDS: CITRIC ACID/SODIUM CITRATE SOLN 30ML UDC PO SCH ×3 (09:00→16:49)
[2021-03-02] MEDS: METOPROLOL TARTRATE 50MG TABLET PO SCH ×2 (09:00→21:00)
[2021-03-02] MEDS: FAMOTIDINE 20MG TABLET PO SCH (09:00)
[2021-03-02 10:33] LABS: INR 1.4; PROTHROMBIN TIME 14.6 sec (9.6-11.0)
[2021-03-02] MEDS ORDERED: SODIUM CHLORIDE 0.9% 250 ML IV NR (11:30)
[2021-03-02] MEDS ORDERED: FUROSEMIDE 40MG/4ML VIAL IVP NR ×2 (13:45→14:30)
[2021-03-02] MEDS: FUROSEMIDE 100MG/10ML VIAL IVP SCH (14:55)
[2021-03-02] MEDS: DEXT 5% WATER + KCL 20MEQ/L 1,000 ML IV SCH (14:57)
[2021-03-03] VITALS (13 sets, daily range): BP systolic 120–144; BP diastolic 52–93
[2021-03-03] MEDS: IPRATROPIUM BROMIDE (0.02%) 0.5MG/2.5ML NEB HHN SCH ×4 (00:30→20:40)
[2021-03-03] MEDS: NITROGLYCERIN OINT 1GM/INCH UDPKT TD SCH ×3 (05:18→21:57)
[2021-03-03 06:04] LABS: BASOPHILS % 0.1 % (0.0-2.0); EOSINOPHILS % 0.4 % (0.0-5.0); HEMATOCRIT. 38.9 % (42.0-52.0); HEMOGLOBIN. 12.9 g/dL (14.0-18.0); LYMPHOCYTES % 7.9 % (20.0-50.0); MEAN CORPUSCULAR VOLUME 90.6 fL (80.0-94.0); MEAN PLATELET VOLUME 11.2 fl (7.4-10.4); MONOCYTES % 7.2 % (2.0-8.0); NEUTROPHILS % 84.4 % (40.0-76.0); PLATELET 62 x1000/uL (130-400); RED BLOOD CELL COUNT 4.29 mill/uL (4.7-6.1)
[2021-03-03] MEDS ORDERED: SODIUM CHLORIDE 0.9% 1000ML BAG (SEPSIS BOLUS) IV ONE (08:00)
[2021-03-03] MEDS: FUROSEMIDE 100MG/10ML VIAL IVP SCH (08:40)
[2021-03-03] MEDS: FAMOTIDINE 20MG TABLET PO SCH (09:00)
[2021-03-03] MEDS: METOPROLOL TARTRATE 50MG TABLET PO SCH ×2 (09:00→21:00)
[2021-03-03] MEDS: METOPROLOL TARTRATE 5MG/5ML VIAL IV PRN ×2 (15:56→23:43)
[2021-03-03] MEDS: DEXT 5% WATER + KCL 20MEQ/L 1,000 ML IV SCH (16:00)
[2021-03-03] MEDS: ENOXAPARIN 30MG/0.3ML SYR SUBCUT SCH (16:00)
[2021-03-03] MEDS: CITRIC ACID/SODIUM CITRATE SOLN 30ML UDC PO SCH (17:00)
[2021-03-04] VITALS (17 sets, daily range): BP systolic 114–155; BP diastolic 45–89
[2021-03-04] MEDS: IPRATROPIUM BROMIDE (0.02%) 0.5MG/2.5ML NEB HHN SCH ×4 (02:22→21:16)
[2021-03-04] MEDS: METOPROLOL TARTRATE 5MG/5ML VIAL IV PRN (03:19)
[2021-03-04] MEDS: NITROGLYCERIN OINT 1GM/INCH UDPKT TD SCH ×3 (05:31→21:59)
[2021-03-04 06:42] LABS: PHOSPHORUS 3.3 mg/dL (2.5-4.9)
[2021-03-04 06:43] LABS: BASOPHILS % 0.1 % (0.0-2.0); EOSINOPHILS % 0.2 % (0.0-5.0); HEMATOCRIT. 41.4 % (42.0-52.0); HEMOGLOBIN. 14.2 g/dL (14.0-18.0); LYMPHOCYTES % 7.9 % (20.0-50.0); MEAN CORPUSCULAR HEMOGLOBIN 30.7 pg (28.0-32.0); MEAN CORPUSCULAR VOLUME 89.4 fL (80.0-94.0); MEAN PLATELET VOLUME 11.6 fl (7.4-10.4); MONOCYTES % 6.9 % (2.0-8.0); NEUTROPHILS % 84.9 % (40.0-76.0); PLATELET 63 x1000/uL (130-400); RED BLOOD CELL COUNT 4.64 mill/uL (4.7-6.1); RED CELL DISTRIBUTION WIDTH 16.3 % (11.6-14.6)
[2021-03-04] MEDS: FUROSEMIDE 100MG/10ML VIAL IVP SCH (08:31)
[2021-03-04] MEDS: METOPROLOL TARTRATE 50MG TABLET PO SCH ×2 (09:00→20:56)
[2021-03-04] MEDS: CITRIC ACID/SODIUM CITRATE SOLN 30ML UDC PO SCH ×3 (09:00→17:00)
[2021-03-04] MEDS: FAMOTIDINE 20MG TABLET PO SCH (09:00)
[2021-03-04] MEDS: ACETYLCYSTEINE 100MG/ML 10% VIAL 4ML INH SCH ×2 (09:13→14:31)
[2021-03-04 09:25] LABS: BG BASE EXCESS -5.6 mmol/L (-2.0-2.0); BG CARBOXYHEMOGLOBIN 1.1 % (0.5-1.5); BG DEOXYHEMOGLOBIN 2.7 % (0.0-5.0); BG FRACTION INSPIRED OXYGEN 28; BG HCO3 ACT 15.7 mmol/L (22.0-26.0); BG METHEMOGLOBIN 0.2 % (0.0-1.5); BG OXYGEN SATURATION 97.3 % (92.0-98.5); BG PO2 85.3 mmHg (75.0-100.0); BG SAMPLE SITE RIGHT RADIAL; BG TOTAL HEMOGLOBIN 14.9 g/dL (12.0-18.0); BG VENT MODE NASAL CANNULA
[2021-03-04] MEDS ORDERED: ALBUMIN HUMAN 12.5GM/50ML (25%) IV ONE (11:15)
[2021-03-04] MEDS ORDERED: ALBUMIN HUMAN 25GM/100ML (25%) IV NR (12:30)
[2021-03-04] MEDS: ENOXAPARIN 30MG/0.3ML SYR SUBCUT SCH (17:10)
[2021-03-05] VITALS (12 sets, daily range): BP systolic 115–132; BP diastolic 56–88
[2021-03-05] MEDS: IPRATROPIUM BROMIDE (0.02%) 0.5MG/2.5ML NEB HHN SCH ×4 (00:58→20:48)
[2021-03-05] MEDS: ACETYLCYSTEINE 100MG/ML 10% VIAL 4ML INH SCH ×3 (00:58→20:48)
[2021-03-05] MEDS: DEXT 5% WATER + KCL 20MEQ/L 1,000 ML IV SCH (02:56)
[2021-03-05] MEDS: METOPROLOL TARTRATE 5MG/5ML VIAL IV PRN ×2 (06:12→17:46)
[2021-03-05] MEDS: NITROGLYCERIN OINT 1GM/INCH UDPKT TD SCH ×3 (06:12→21:27)
[2021-03-05 07:06] LABS: HEMATOCRIT. 41.1 % (42.0-52.0); HEMOGLOBIN. 13.5 g/dL (14.0-18.0); MEAN CORPUSCULAR HEMOGLOBIN 29.5 pg (28.0-32.0); MEAN CORPUSCULAR VOLUME 89.9 fL (80.0-94.0); MEAN PLATELET VOLUME 11.2 fl (7.4-10.4); RED BLOOD CELL COUNT 4.57 mill/uL (4.7-6.1); RED CELL DISTRIBUTION WIDTH 16.8 % (11.6-14.6)
[2021-03-05 07:44] LABS: PLATELET 34 x1000/uL (130-400)
[2021-03-05 07:59] LABS: CHLORIDE 111 mEq/L (98-107)
[2021-03-05 08:06] LABS: PHOSPHORUS 3.1 mg/dL (2.5-4.9)
[2021-03-05] MEDS: METOPROLOL TARTRATE 50MG TABLET PO SCH ×2 (08:07→21:00)
[2021-03-05] MEDS: CITRIC ACID/SODIUM CITRATE SOLN 30ML UDC PO SCH ×3 (08:07→16:56)
[2021-03-05] MEDS: FAMOTIDINE 20MG TABLET PO SCH (08:07)
[2021-03-05] MEDS: FUROSEMIDE 40MG/4ML VIAL IVP SCH (08:10)
[2021-03-05 09:39] LABS: BG BASE EXCESS -4.1 mmol/L (-2.0-2.0); BG CARBOXYHEMOGLOBIN 0.8 % (0.5-1.5); BG DEOXYHEMOGLOBIN 14.8 % (0.0-5.0); BG FRACTION INSPIRED OXYGEN 28; BG METHEMOGLOBIN 0.2 % (0.0-1.5); BG OXYGEN SATURATION 85.1 % (92.0-98.5); BG OXYHEMOGLOBIN 84.2 % (94.0-97.0); BG PCO2 33.9 mmHg (35.0-45.0); BG PH 7.388 (7.350-7.450); BG PO2 50.9 mmHg (75.0-100.0); BG SAMPLE SITE RIGHT RADIAL; BG TOTAL HEMOGLOBIN 14.4 g/dL (12.0-18.0); BG VENT MODE NASAL CANNULA
[2021-03-05 11:32] LABS: PLATELET ESTIMATE MARKEDLY DECREASED
[2021-03-06] VITALS (12 sets, daily range): BP systolic 99–136; BP diastolic 53–90
[2021-03-06] MEDS: IPRATROPIUM BROMIDE (0.02%) 0.5MG/2.5ML NEB HHN SCH ×4 (00:45→20:05)
[2021-03-06] MEDS: METOPROLOL TARTRATE 5MG/5ML VIAL IV PRN ×2 (02:57→23:34)
[2021-03-06] MEDS: NITROGLYCERIN OINT 1GM/INCH UDPKT TD SCH ×3 (06:16→21:16)
[2021-03-06] MEDS: FUROSEMIDE 40MG/4ML VIAL IVP SCH (08:42)
[2021-03-06] MEDS: CITRIC ACID/SODIUM CITRATE SOLN 30ML UDC PO SCH ×2 (08:42→08:43)
[2021-03-06] MEDS: METOPROLOL TARTRATE 50MG TABLET PO SCH ×2 (08:43→21:00)
[2021-03-06] MEDS: FAMOTIDINE 20MG TABLET PO SCH (08:43)
[2021-03-06] MEDS: ACETYLCYSTEINE 100MG/ML 10% VIAL 4ML INH SCH ×2 (09:01→14:41)
[2021-03-06] MEDS: DEXT 5% WATER + KCL 20MEQ/L 1,000 ML IV SCH (14:28)
[2021-03-06 15:42] LABS: PHOSPHORUS 3.8 mg/dL (2.5-4.9)
[2021-03-06 17:41] LABS: HEMATOCRIT. 44.6 % (42.0-52.0); HEMOGLOBIN. 14.5 g/dL (14.0-18.0); MEAN CORPUSCULAR HEMOGLOBIN 29.5 pg (28.0-32.0); MEAN CORPUSCULAR VOLUME 90.9 fL (80.0-94.0); MEAN PLATELET VOLUME 11.6 fl (7.4-10.4); PLATELET 67 x1000/uL (130-400); RED CELL DISTRIBUTION WIDTH 16.9 % (11.6-14.6)
[2021-03-06 17:51] LABS: INR 1.5; PROTHROMBIN TIME 15.8 sec (9.6-11.0)
[2021-03-06] MEDS: DEXT 5%/0.9% NACL 1,000 ML IV SCH (18:55)
[2021-03-07] VITALS (12 sets, daily range): BP systolic 99–142; BP diastolic 57–110
[2021-03-07] MEDS: ACETYLCYSTEINE 100MG/ML 10% VIAL 4ML INH SCH ×4 (01:16→14:49)
[2021-03-07] MEDS: IPRATROPIUM BROMIDE (0.02%) 0.5MG/2.5ML NEB HHN SCH ×3 (01:16→14:49)
[2021-03-07] MEDS: NITROGLYCERIN OINT 1GM/INCH UDPKT TD SCH ×3 (06:40→21:28)
[2021-03-07 06:48] LABS: HEMATOCRIT. 39.4 % (42.0-52.0); HEMOGLOBIN. 13.1 g/dL (14.0-18.0); MEAN CORPUSCULAR VOLUME 90.6 fL (80.0-94.0); MEAN PLATELET VOLUME 11.7 fl (7.4-10.4); PLATELET 69 x1000/uL (130-400); RED BLOOD CELL COUNT 4.35 mill/uL (4.7-6.1); RED CELL DISTRIBUTION WIDTH 16.8 % (11.6-14.6)
[2021-03-07 07:28] LABS: PHOSPHORUS 3.8 mg/dL (2.5-4.9)
[2021-03-07] MEDS: FAMOTIDINE 20MG TABLET PO SCH (09:00)
[2021-03-07] MEDS: CLONIDINE HCL 0.1MG/24HR PATCH TD SCH (09:00)
[2021-03-07] MEDS: METOPROLOL TARTRATE 50MG TABLET PO SCH ×2 (09:00→21:00)
[2021-03-07] MEDS: CITRIC ACID/SODIUM CITRATE SOLN 30ML UDC PO SCH ×2 (10:05→10:06)
[2021-03-07] MEDS: DEXT 5%/0.9% NACL 1,000 ML IV SCH (10:27)
[2021-03-07] MEDS: METOPROLOL TARTRATE 5MG/5ML VIAL IV PRN ×2 (14:03→23:00)
[2021-03-07 16:03] LABS: NUCLEATED RED BLOOD CELLS 1 /100 WBC
[2021-03-07 16:04] LABS: PLATELET ESTIMATE DECREASED
[2021-03-07 23:28] LABS: PLATELET ESTIMATE DECREASED
[2021-03-08] VITALS (9 sets, daily range): BP systolic 100–140; BP diastolic 61–81
[2021-03-08] MEDS: IPRATROPIUM BROMIDE (0.02%) 0.5MG/2.5ML NEB HHN SCH ×3 (00:13→13:30)
[2021-03-08] MEDS: DEXT 5%/0.9% NACL 1,000 ML IV SCH ×2 (00:30→09:43)
[2021-03-08] MEDS: METOPROLOL TARTRATE 5MG/5ML VIAL IV PRN ×5 (01:59→17:58)
[2021-03-08] MEDS: NITROGLYCERIN OINT 1GM/INCH UDPKT TD SCH ×2 (05:12→15:59)
[2021-03-08 07:31] LABS: HEMATOCRIT. 38.2 % (42.0-52.0); HEMOGLOBIN. 12.1 g/dL (14.0-18.0); MEAN CORPUSCULAR VOLUME 91.2 fL (80.0-94.0); MEAN PLATELET VOLUME 11.8 fl (7.4-10.4); PLATELET 74 x1000/uL (130-400); RED BLOOD CELL COUNT 4.18 mill/uL (4.7-6.1); RED CELL DISTRIBUTION WIDTH 17.2 % (11.6-14.6)
[2021-03-08 07:56] LABS: PHOSPHORUS 3.8 mg/dL (2.5-4.9)
[2021-03-08] MEDS: CITRIC ACID/SODIUM CITRATE SOLN 30ML UDC PO SCH ×3 (08:41→16:13)
[2021-03-08] MEDS: FAMOTIDINE 20MG TABLET PO SCH (08:41)
[2021-03-08] MEDS: METOPROLOL TARTRATE 50MG TABLET PO SCH (08:41)
[2021-03-08] MEDS ORDERED: NALOXONE HCL 0.4MG/ML VIAL IV PRN (14:45)
[2021-03-08] MEDS ORDERED: MORPHINE SULFATE 2 MG/ML CPJ (NOT FOR IM USE) IV PRN (14:45)
[2021-03-08 17:59] LABS: PLATELET ESTIMATE DECREASED
== END 2021-03-08 21:07 | DRG 871 ==
LOC: ER 03:32 → 5EST 05:00 → EDBEDREQSVC 12:26 → ENRESERV 13:17
PROVIDERS: ADMIT Internal Medicine; ATTEND Internal Medicine
PROC: 5A09357 Assistance with Respiratory Ventilation, Less than 24 Consecutive Hours, Continuous Positive Airway Pressure (ICD-10-PCS; 2021-02-23)
PROC: 30233K1 Transfusion of Nonautologous Frozen Plasma into Peripheral Vein, Percutaneous Approach (ICD-10-PCS; principal; 2021-02-24)
PROC: 02HV33Z Insertion of Infusion Device into Superior Vena Cava, Percutaneous Approach (ICD-10-PCS; 2021-02-27)
PROC: B548ZZA Ultrasonography of Superior Vena Cava, Guidance (ICD-10-PCS; 2021-02-27)
PROC: 30233R1 Transfusion of Nonautologous Platelets into Peripheral Vein, Percutaneous Approach (ICD-10-PCS; 2021-03-02)
DX: A41.9 Sepsis, unspecified organism (principal); G92.8 Other toxic encephalopathy; N17.0 Acute kidney failure with tubular necrosis; I50.43 Acute on chronic combined systolic (congestive) and diastolic (congestive) heart failure; J18.9 Pneumonia, unspecified organism; J96.01 Acute respiratory failure with hypoxia; E44.0 Moderate protein-calorie malnutrition; E87.0 Hyperosmolality and hypernatremia; E87.1 Hypo-osmolality and hyponatremia; E87.2 Acidosis; N13.6 Pyonephrosis; D68.69 Other thrombophilia; I42.0 Dilated cardiomyopathy; I48.11 Longstanding persistent atrial fibrillation; Z66 Do not resuscitate; D69.6 Thrombocytopenia, unspecified; E78.00 Pure hypercholesterolemia, unspecified; E86.0 Dehydration; E87.5 Hyperkalemia; I11.0 Hypertensive heart disease with heart failure; R13.12 Dysphagia, oropharyngeal phase; R65.20 Severe sepsis without septic shock; R62.7 Adult failure to thrive; E87.6 Hypokalemia; E78.5 Hyperlipidemia, unspecified; F03.90 Unspecified dementia, unspecified severity, without behavioral disturbance, psychotic disturbance, mood disturbance, and anxiety; I36.1 Nonrheumatic tricuspid (valve) insufficiency; N40.0 Benign prostatic hyperplasia without lower urinary tract symptoms; Z51.5 Encounter for palliative care; Z59.00 Homelessness unspecified; Z78.1 Physical restraint status; Z68.20 Body mass index [BMI] 20.0-20.9, adult; R74.01 Elevation of levels of liver transaminase levels; I34.0 Nonrheumatic mitral (valve) insufficiency
CPT/HCPCS: 36415; 36600; 71045; 74176; 76705; 76770; 76937; 80048; 80053; 80076; 80202; 81003; 82043; 82375; 82550; 82553; 82570; 82607; 82746; 82805; 82962; 83540; 83550; 83605; 83735; 83880; 83935; 84100; 84145; 84155; 84165; 84300; 84443; 84484; 85025; 86705; 86709; 86803; 86850; 86900; 86927; 86945; 87340; 87426; 93005; 93306; 93923; 93970; 94640; 94660; 94667; 97162; 99291; C1725; J0690; J0692; J1630; J1650; J1815; J1940; J2270; J2405; J2543; J3370; J3430; J3490; J7042; J7050; J7060; J7070; J7608; P9017; P9034; P9047